=== PATIENT | male | born 1945 | race Caucasian/White ===

== ENCOUNTER 2016-12-18 11:05 | Outpatient (CLI) | payer MEDICARE ==
--- NOTE | 2016-12-18 14:10 | ULT ---
LEFT LOWER EXTREMITY VENOUS ULTRASOUND 12/18/2016 Ultrasonography of the deep veins of the left lower extremity was performed from groin to ankle. Al l deep veins were freely compressible. No echogenic clot was seen. There was normal Doppler respon se to augmentation maneuvers. IMPRESSION: No evidence of DVT. POS: MONE
--- NOTE | 2016-12-18 14:41 | ULT ---
LEFT LOWER EXTREMITY ARTERIAL ULTRASOUND: DATE: 12/18/16. FINDINGS: Color duplex Doppler ultrasonography of the arteries of the left lower extremity was performed. The patient presents with leg pain. Only the left side was done. For the most part, all the waveforms are biphasic. Overall, there is reduced flow throughout. Spec [facility] findings and measurements include: Left common femoral artery 54 cm/s. Left SFA 49-54 cm/s. Popliteal 52 cm/s. Proximal posterior tibial 33 cm/s Dorsalis pedis 50 cm/s. The uniformity of readings suggests no high-grade stenoses within the extremity itself; however, a f low of 54 cm/s in the common femoral artery is low, as are the other values inferior to it. Somewhe re close to 70 would be more typical in the distal SFA and popliteal area. All this implies the pos sibility of a higher-grade stenosis upstream in the iliac arteries. While I wish I would have had c omparison values of the right leg, these are consistently low enough to at least raise the question. Further studies, such as an CTA aortogram and runoff, particularly to investigate the iliac arteries , could prove fruitful. IMPRESSION: No high-grade stenoses indicated within the left lower extremity itself, but flows were reduced even as high as the common femoral artery suggesting the possibility of higher-grade iliac lesions above . See discussion above. POS: MONE
== END 2016-12-18 11:06 | disposition home or self-care (01) ==
LOC: BURULT 11:05
PROVIDERS: ATTEND Family Medicine
DX: M79.605 Pain in left leg (principal)
CPT/HCPCS: 93923

== ENCOUNTER 2017-06-23 09:43 | Outpatient (CLI) | payer MEDICARE | END 2017-06-23 09:44 | disposition home or self-care (01) | LOC: HPCALD 09:43 | PROVIDERS: ATTEND Family Medicine | DX: E29.1 Testicular hypofunction (principal) | CPT/HCPCS: 36415; 84403; G0103 ==

== ENCOUNTER 2018-01-26 15:46 | Emergency (ER) | payer MEDICARE ==
[2018-01-26] MEDS ORDERED: Lorazepam 2 MG/ML VIAL ONE (15:55)
[2018-01-26 16:09] LABS: #Basophils 0.1 thou/uL (0.0-0.2); #Eosinphils 0.1 thou/uL (0.0-0.7); #Lymphocytes 1.3 thou/uL (1.20-3.40); #Monocytes 0.5 thou/uL (0.11-0.59); #Neutrophils 6.2 thou/uL (1.40-6.50); %Basophils 0.9 % (0.0-1.0); %Eosinophils 1.3 % (0.0-10.0); %Lymphocytes 15.9 % (21.0-51.0); %Monocytes 6.3 % (0.0-10.0); %Neutrophils 75.7 % (42.0-75.0); Hemoglobin 18.8 g/dL (14.0-18.0); Mean Corpuscular HGB CONC 36.2 g/dL (32.0-36.0); Mean Corpuscular Hemoglobin 32.7 pg (27.0-31.0); Mean Corpuscular Volume 90.4 fl (80.0-94.0); Mean Platelet Volume 12.2 fL (7.4-10.4); Platelet Count 194 thou/uL (130-400); RBC Distribution Width 13.9 % (11.5-14.5); Red Blood Cell (RBC) Count 5.76 mill/uL (4.70-6.10); White Blood Cell (WBC) Count 8.2 thou/uL (4.8-10.8)
[2018-01-26 16:11] LABS: INR-International Normal Ratio 2.4; PTT 43.9 SEC (22.9-36.1)
[2018-01-26 16:20] LABS: ALT (SGPT) 27 U/L (8-55); AST (SGOT) 21 U/L (5-34); Albumin 4.3 g/dL (3.4-4.8); Alkaline Phosphatase 78 U/L (40-150); Anion Gap 17 mmol/L (10-20); BUN (Urea Nitrogen) 31 mg/dL (8.4-25.7); Calc. Creatinine Clearance 0 mL/min (70-130); Calcium 9.8 mg/dL (7.8-10.44); Carbon Dioxide 21 mmol/L (23-31); Chloride 103 mmol/L (98-107); Estimated GFR-MDRD 35; Globulin 3.1 g/dL (2.4-3.5); Glucose 331 mg/dL (83-110); Lipase 24 U/L (8-78); Potassium 4.3 mmol/L (3.5-5.1); Protein, Total 7.4 g/dL (5.8-8.1); Sodium 137 mmol/L (136-145)
[2018-01-26 16:21] LABS: Troponin I 0.058 ng/mL (< 0.028)
[2018-01-26 16:31] LABS: Large Platelets SLIGHT
[2018-01-26 16:32] LABS: Manual Diff?? NO
[2018-01-26 16:37] LABS: CKMB 7.4 ng/mL (0-6.6)
[2018-01-26 16:38] LABS: Critical Call CKMBM 0
[2018-01-26 16:44] LABS: Critical Call w/ Read Back NOT CALLED
[2018-01-26 16:50] LABS: MDiff Complete? YES; Polychromasia SLIGHT = 2-3 cells (100X) (0-2/hpf)
--- NOTE | 2018-01-26 17:43 | RAD ---
PORTABLE CHEST 01/26/18 Comparison is made with a 04/24/16 study. This portable film at 1614 shows increased density in the right base, though it is a somewhat expirat ory film, so difficult to assess well. There was a small amount of density here in 2016 but this seem s a little more confluent. I cannot rule out a consolidation of lung in this location. CT would be us eful at showing it better. Some lingular scarring is suggested. There is no vascular congestion. The heart is probably normal in size given the depth of inspiration in a portable film. IMPRESSION: Some increased density in the right lung base of uncertain etiology. See CT report to follow. POS: HOME
--- NOTE | 2018-01-26 17:47 | CT ---
CT OF THE THORAX WITHOUT CONTRAST 01/26/18 Exam was done without contrast due to a very low GFR of 35. Patient presents with some chest pain. Ax ial slices were acquired, then coronal and sagittal reconstructions were done. The exam was also done to evaluate an abnormal density in the right lower chest on the chest film done earlier today. 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 Thus lorena er protruding into that area causes the density. There are a few streaks in the lung adjacent to that that is probably some compressive atelectasis. No major consolidation, effusion, or other acute acosta ge was seen. There is a little dependent atelectasis in the lower lobes posteriorly. Prominent fat pa d is seen around the lingular area along with a little adjacent scarring. No pulmonary masses or conc al for detected. The mediastinum showed no mass or significant adenopathy. There was some calcificat ion in the LAD. There is no pericardial fluid. Scans into the upper abdomen showed normal adrenal glands. There is a 2.9 cm low density area in the left lobe of the liver that is probably a cyst or hemangioma. Other studies would be needed for confi rmation. Extensive degenerative changes are seen in the spine. IMPRESSION: 1. 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 2. Calcification in the LAD. 3. 2.9 cm cystic area in the left lobe of the liver. Cyst versus hemangioma most likely. See mally ramirez. POS: HOME
[2018-01-26 19:23] LABS: Troponin I 1.306 ng/mL (< 0.028)
== END 2018-01-26 21:11 ==
LOC: BURERS 15:46
DX: I21.4 Non-ST elevation (NSTEMI) myocardial infarction (principal); E11.9 Type 2 diabetes mellitus without complications; K21.9 Gastro-esophageal reflux disease without esophagitis; E78.5 Hyperlipidemia, unspecified; I10 Essential (primary) hypertension; E66.9 Obesity, unspecified; N40.0 Benign prostatic hyperplasia without lower urinary tract symptoms; F41.9 Anxiety disorder, unspecified; Z86.718 Personal history of other venous thrombosis and embolism; Z87.442 Personal history of urinary calculi; Z87.891 Personal history of nicotine dependence; Z79.4 Long term (current) use of insulin; Z79.899 Other long term (current) drug therapy
CPT/HCPCS: 36415; 71045; 71250; 80053; 82553; 83690; 83880; 84484; 85025; 85610; 85730; 93005; 96361; 96374; J2060

== ENCOUNTER 2022-03-11 09:02 | Inpatient (IN) | payer MEDICARE ==
[2022-03-11 10:22] LABS: #Basophils 0.1 thou/uL (0.0-0.2); #Lymphocytes 1.3 thou/uL (1.20-3.40); #Monocytes 0.9 thou/uL (0.11-0.59); #Neutrophils 7.3 thou/uL (1.40-6.50); %Basophils 0.7 % (0.0-1.0); %Eosinophils 0.5 % (0.0-10.0); %Lymphocytes 13.7 % (21.0-51.0); %Monocytes 9.1 % (0.0-10.0); %Neutrophils 76.1 % (42.0-75.0); Hemoglobin 12.4 g/dL (14.0-18.0); Mean Corpuscular HGB CONC 33.7 g/dL (32.0-36.0); Mean Corpuscular Hemoglobin 29.4 pg (27.0-31.0); Mean Corpuscular Volume 87.4 fL (78.0-98.0); Mean Platelet Volume 11.2 fL (7.4-10.4); Platelet Count 251 thou/uL (130-400); Red Blood Cell (RBC) Count 4.22 mill/uL (4.70-6.10); White Blood Cell (WBC) Count 9.6 thou/uL (4.8-10.8)
[2022-03-11 10:34] LABS: Base Excess-Venous 0.3 mmol/L (-2.0 to 3.0); Bicarbonate (HCO3v) 25.9 mmol/L (22.0-28.0); CO2 Tension (PvCO2) 44.8 mmHg (42.0-51.0); Calcium, Ionized 1.17 mmol/L (1.15-1.33); Chloride 105 mmol/L (98-107); Potassium 4.5 mmol/L (3.5-5.1); Sodium 142 mmol/L (138-145); T. Carbon Dioxide 27.3 mmol/L (22.0-28.0); vO2 Saturation-calc 57.4 % (60.0-85.0)
[2022-03-11 10:47] LABS: ALT (SGPT) 44 U/L (8-55); AST (SGOT) 65 U/L (5-34); Albumin 3.3 g/dL (3.4-4.8); Alkaline Phosphatase 65 U/L (40-110); Anion Gap 16 mmol/L (10-20); BUN (Urea Nitrogen) 34 mg/dL (8.4-25.7); Bilirubin, Total 0.5 mg/dL (0.2-1.2); Calc. Creatinine Clearance 0 mL/min (70-130); Calcium 9.1 mg/dL (7.8-10.44); Carbon Dioxide 25 mmol/L (23-31); Chloride 106 mmol/L (98-107); Globulin 3.6 g/dL (2.4-3.5); Potassium 4.5 mmol/L (3.5-5.1); Protein, Total 6.9 g/dL (5.8-8.1); Sodium 142 mmol/L (136-145)
[2022-03-11 10:49] LABS: Bilirubin Negative (Negative); Blood, Urine Large (Negative); Clarity Clear (Clear); Glucose, Urine (Dipstick) Negative (Negative); Ketone, Urine Negative (Negative); Leukocyte Negative (Negative); Nitrite Negative (Negative); Protein, Urine (Dipstick) > or equal to 300 mg/dL (Neg-Trace); pH, Urine 5.5 (5.0-9.0)
[2022-03-11 10:50] LABS: Glucose 57 mg/dL (83-110)
[2022-03-11 10:56] LABS: Bacteria/HPF Rare-Few HPF (None Seen); RBC/HPF 21-50 HPF (0-3); Squamous Epithelial None Seen HPF (0-3); WBC/HPF 0-3 HPF (0-3)
[2022-03-11] MEDS ORDERED: cefTRIAXone\\ROCEPHIN 2 GM VIAL ONE (12:21)
[2022-03-11] MEDS ORDERED: Azithromycin 500 MG VIAL ONE (12:21)
[2022-03-11 14:38] LABS: SARS-CoV-2 NAA Rapid Test Not Detected (NotDetected)
[2022-03-11] MEDS ORDERED: Ondansetron ODT 4 MG TAB PO PRN (15:29)
[2022-03-11] MEDS ORDERED: Dextrose 50% Abboject 50 ML SYRINGE SLOW IVP PRN (15:29)
[2022-03-11] MEDS ORDERED: Dextrose 5% in Water 1,000 ML IV PRN (15:29)
[2022-03-11] MEDS ORDERED: Polyethylene Glycol 3350 17 GM Packet PO PRN (15:29)
[2022-03-11] MEDS ORDERED: LAN TOP PRN (15:45)
[2022-03-11] MEDS ORDERED: [UNRECOGNIZED DRUG - OTHER] TOP PRN (15:45)
[2022-03-11] MEDS ORDERED: SOD CHLORIDE TOP PRN (15:45)
[2022-03-11 15:57] LABS: INR-International Normal Ratio 2.9; Prothrombin Time 30.6 sec (12.0-14.7)
[2022-03-11] MEDS: HumaLOG 300 UNITS/3 ML VIAL SC PRN (16:58)
[2022-03-11] MEDS: Warfarin Sodium 5 MG TAB PO SCH (17:01)
[2022-03-11 17:05] LABS: Hemoglobin A1c 8.6 % (4.0-6.0)
[2022-03-11] MEDS ORDERED: Lantus 1000 UNITS/10 ML VIAL SC SCH (21:00)
[2022-03-11] MEDS: Terazosin HCl 1 MG CAP PO SCH (21:20)
[2022-03-11] MEDS: hydrALAZINE 25 MG TAB PO SCH (21:21)
[2022-03-11] MEDS: Atorvastatin Calcium 40 MG TAB PO SCH (21:21)
[2022-03-11] MEDS: DOXYLAMINE 25 MG PO SCH (21:22)
[2022-03-12 05:18] LABS: INR-International Normal Ratio 2.8; Prothrombin Time 30.1 sec (12.0-14.7)
[2022-03-12 06:25] VITALS: BMI 37.1
[2022-03-12] MEDS: Nystatin Powder 15 GM BOT TOP SCH ×2 (08:46→21:00)
[2022-03-12] MEDS: HumaLOG 300 UNITS/3 ML VIAL SC PRN ×3 (09:00→17:17)
[2022-03-12] MEDS: hydrALAZINE 25 MG TAB PO SCH ×3 (09:02→20:34)
[2022-03-12] MEDS: Fish Oil 1,000 MG CAP PO SCH (09:02)
[2022-03-12] MEDS: Furosemide 20 MG TAB PO SCH (09:03)
[2022-03-12] MEDS: Allopurinol 100 MG TAB PO SCH (09:03)
[2022-03-12] MEDS: Aspirin Chewable 81 MG TAB PO SCH (09:03)
[2022-03-12] MEDS: Fenofibrate 48 MG TAB PO SCH (09:03)
[2022-03-12] MEDS: Cyanocobalamin (Vitamin B-12) 1,000 MCG TAB PO SCH (09:05)
[2022-03-12] MEDS: Cholecalciferol 1,000 UNITS (25 MCG) TAB PO SCH (09:05)
[2022-03-12] MEDS: Fluticasone Propionate Nasal Spray 16 gm Bottle NASAL SCH (09:06)
[2022-03-12] MEDS: POTASSIUM CITRATE 10 MEQ PO SCH ×2 (09:07→13:49)
[2022-03-12] MEDS ORDERED: Lantus 1000 UNITS/10 ML VIAL SC SCH ×3 (11:30→21:00)
[2022-03-12] MEDS: cefTRIAXone\\ROCEPHIN 1 GM in Sodium Chloride 0.9% 100 ML IVPB SCH (13:50)
[2022-03-12] MEDS: Azithromycin 500 MG in Sodium Chloride 0.9% 250 ML 250 ML IVPB SCH (14:25)
[2022-03-12] MEDS: Warfarin Sodium 5 MG TAB PO SCH (17:16)
[2022-03-12] MEDS: Atorvastatin Calcium 40 MG TAB PO SCH (20:33)
[2022-03-12] MEDS: DOXYLAMINE 25 MG PO SCH (20:38)
[2022-03-12] MEDS: Terazosin HCl 1 MG CAP PO SCH (20:39)
[2022-03-13 07:13] LABS: Prothrombin Time 31.6 sec (12.0-14.7)
[2022-03-13] MEDS ORDERED: Lantus 1000 UNITS/10 ML VIAL SC SCH (09:00)
[2022-03-13] MEDS: Allopurinol 100 MG TAB PO SCH (09:13)
[2022-03-13] MEDS: Furosemide 20 MG TAB PO SCH (09:13)
[2022-03-13] MEDS: Cyanocobalamin (Vitamin B-12) 1,000 MCG TAB PO SCH (09:13)
[2022-03-13] MEDS: Aspirin Chewable 81 MG TAB PO SCH (09:14)
[2022-03-13] MEDS: Fenofibrate 48 MG TAB PO SCH (09:14)
[2022-03-13] MEDS: Fish Oil 1,000 MG CAP PO SCH (09:14)
[2022-03-13] MEDS: Cholecalciferol 1,000 UNITS (25 MCG) TAB PO SCH (09:14)
[2022-03-13] MEDS: hydrALAZINE 25 MG TAB PO SCH (09:15)
[2022-03-13] MEDS: Nystatin Powder 15 GM BOT TOP SCH (09:16)
[2022-03-13] MEDS: Fluticasone Propionate Nasal Spray 16 gm Bottle NASAL SCH (09:26)
[2022-03-13] MEDS: POTASSIUM CITRATE 10 MEQ PO SCH (09:30)
[2022-03-13 12:50] VITALS: BP 135/69; TEMP 98.9
[2022-03-13] MEDS: cefTRIAXone\\ROCEPHIN 1 GM in Sodium Chloride 0.9% 100 ML IVPB SCH (13:05)
[2022-03-13] MEDS: Azithromycin 500 MG in Sodium Chloride 0.9% 250 ML 250 ML IVPB SCH (13:39)
== END 2022-03-13 13:57 | disposition swing bed (61) | DRG 947 ==
LOC: BURERS 09:02 → BURMED 13:18
PROVIDERS: ADMIT Family Medicine; ATTEND Family Medicine
DX: R53.81 Other malaise (principal); J18.9 Pneumonia, unspecified organism; E11.649 Type 2 diabetes mellitus with hypoglycemia without coma; G47.33 Obstructive sleep apnea (adult) (pediatric); K21.9 Gastro-esophageal reflux disease without esophagitis; N40.0 Benign prostatic hyperplasia without lower urinary tract symptoms; E78.5 Hyperlipidemia, unspecified; Z20.822 Contact with and (suspected) exposure to COVID-19; F41.9 Anxiety disorder, unspecified; I25.10 Atherosclerotic heart disease of native coronary artery without angina pectoris; I10 Essential (primary) hypertension; E66.9 Obesity, unspecified; Z86.718 Personal history of other venous thrombosis and embolism; Z86.73 Personal history of transient ischemic attack (TIA), and cerebral infarction without residual deficits; Z90.49 Acquired absence of other specified parts of digestive tract; Z87.891 Personal history of nicotine dependence; Z88.5 Allergy status to narcotic agent; Z79.01 Long term (current) use of anticoagulants; Z68.37 Body mass index [BMI] 37.0-37.9, adult
CPT/HCPCS: 36415; 36416; 70450; 71045; 71250; 80053; 81003; 81015; 82330; 82803; 83036; 83880; 84484; 85014; 85025; 85610; 87040; 87149; 93005; J0456; J0696; J1815; J3490; J7050; U0002

== ENCOUNTER 2022-03-13 13:57 | Inpatient (IN) | payer MEDICARE ==
[2022-03-13] MEDS ORDERED: HumaLOG 300 UNITS/3 ML VIAL SC PRN (15:19)
[2022-03-13] MEDS ORDERED: WATER IV PRN (15:19)
[2022-03-13] MEDS ORDERED: Ondansetron ODT 4 MG TAB PO PRN (15:19)
[2022-03-13] MEDS ORDERED: Dextrose 50% Abboject 50 ML SYRINGE SLOW IVP PRN (15:19)
[2022-03-13] MEDS ORDERED: Polyethylene Glycol 3350 17 GM Packet PO PRN (15:19)
[2022-03-13] MEDS ORDERED: DEXTROSE 5% IV PRN (15:19)
[2022-03-13] MEDS ORDERED: Triamcinolone 0.1% Cream 15 GM TUBE TOP PRN (15:36)
[2022-03-13] MEDS ORDERED: LUBRIDERM DT PRN (15:41)
[2022-03-13] MEDS ORDERED: Dextrose 5% in Water 1,000 ML IV PRN (15:45)
[2022-03-13 16:07] LABS: INR-International Normal Ratio 2.8; Prothrombin Time 30.1 sec (12.0-14.7)
[2022-03-13] MEDS: Warfarin Sodium 5 MG TAB PO SCH (17:49)
[2022-03-13] MEDS: HumaLOG 300 UNITS/3 ML VIAL SC PRN (18:22)
[2022-03-13] MEDS ORDERED: Lantus 1000 UNITS/10 ML VIAL SC SCH (21:00)
[2022-03-13] MEDS: Terazosin HCl 1 MG CAP PO SCH (21:19)
[2022-03-13] MEDS: hydrALAZINE 25 MG TAB PO SCH (21:20)
[2022-03-13] MEDS: Atorvastatin Calcium 40 MG TAB PO SCH (21:20)
[2022-03-13] MEDS: Nystatin Powder 15 GM BOT TOP SCH (21:20)
[2022-03-13] MEDS: UNISOM 25 MG PO SCH (21:21)
[2022-03-14] MEDS: Nystatin Powder 15 GM BOT TOP SCH ×2 (09:35→21:22)
[2022-03-14] MEDS: Aspirin Chewable 81 MG TAB PO SCH (09:35)
[2022-03-14] MEDS: Allopurinol 100 MG TAB PO SCH (09:35)
[2022-03-14] MEDS: Furosemide 20 MG TAB PO SCH (09:36)
[2022-03-14] MEDS: Fenofibrate 48 MG TAB PO SCH (09:36)
[2022-03-14] MEDS: Cholecalciferol 1,000 UNITS (25 MCG) TAB PO SCH (09:36)
[2022-03-14] MEDS: Cyanocobalamin (Vitamin B-12) 1,000 MCG TAB PO SCH (09:37)
[2022-03-14] MEDS: Fish Oil 1,000 MG CAP PO SCH (09:37)
[2022-03-14] MEDS: hydrALAZINE 25 MG TAB PO SCH ×3 (09:38→21:22)
[2022-03-14] MEDS: Fluticasone Propionate Nasal Spray 16 gm Bottle NASAL SCH (09:40)
[2022-03-14] MEDS: Lantus 1000 UNITS/10 ML VIAL SC SCH ×2 (09:41→21:34)
[2022-03-14] MEDS: POTASSIUM CITRATE 10 MEQ PO SCH (09:50)
[2022-03-14] MEDS: cefTRIAXone\\ROCEPHIN 1 GM in Sodium Chloride 0.9% 100 ML IVPB SCH (12:55)
[2022-03-14] MEDS ORDERED: cefTRIAXone\\ROCEPHIN 1 GM VIAL IVPB SCH (13:00)
[2022-03-14] MEDS: Azithromycin 500 MG in Sodium Chloride 0.9% 250 ML 250 ML IVPB SCH (13:59)
[2022-03-14] MEDS ORDERED: Azithromycin 500 MG VIAL IVPB SCH (14:00)
[2022-03-14] MEDS: Warfarin Sodium 5 MG TAB PO SCH (17:30)
[2022-03-14] MEDS: HumaLOG 300 UNITS/3 ML VIAL SC PRN (17:31)
[2022-03-14] MEDS: Terazosin HCl 1 MG CAP PO SCH (21:22)
[2022-03-14] MEDS: Atorvastatin Calcium 40 MG TAB PO SCH (21:22)
[2022-03-14] MEDS: UNISOM 25 MG PO SCH (21:23)
[2022-03-15] MEDS: Lantus 1000 UNITS/10 ML VIAL SC SCH ×3 (09:36→22:36)
[2022-03-15] MEDS: HumaLOG 300 UNITS/3 ML VIAL SC PRN ×3 (09:41→17:14)
[2022-03-15] MEDS: Fish Oil 1,000 MG CAP PO SCH (09:44)
[2022-03-15] MEDS: Aspirin Chewable 81 MG TAB PO SCH (09:44)
[2022-03-15] MEDS: Fenofibrate 48 MG TAB PO SCH (09:45)
[2022-03-15] MEDS: Cholecalciferol 1,000 UNITS (25 MCG) TAB PO SCH (09:45)
[2022-03-15] MEDS: Cyanocobalamin (Vitamin B-12) 1,000 MCG TAB PO SCH (09:49)
[2022-03-15] MEDS: POTASSIUM CITRATE 10 MEQ PO SCH (09:51)
[2022-03-15] MEDS: Allopurinol 100 MG TAB PO SCH (09:52)
[2022-03-15] MEDS: Furosemide 20 MG TAB PO SCH (09:52)
[2022-03-15] MEDS: hydrALAZINE 25 MG TAB PO SCH ×3 (09:53→20:50)
[2022-03-15] MEDS: Fluticasone Propionate Nasal Spray 16 gm Bottle NASAL SCH (10:27)
[2022-03-15] MEDS: cefTRIAXone\\ROCEPHIN 1 GM in Sodium Chloride 0.9% 100 ML IVPB SCH (12:51)
[2022-03-15] MEDS: Nystatin Powder 15 GM BOT TOP SCH ×2 (12:51→21:15)
[2022-03-15] MEDS: Azithromycin 500 MG in Sodium Chloride 0.9% 250 ML 250 ML IVPB SCH (13:57)
[2022-03-15 15:57] LABS: Anion Gap 16 mmol/L (10-20); BUN (Urea Nitrogen) 42 mg/dL (8.4-25.7); Calc. Creatinine Clearance 48 mL/min (70-130); Calcium 8.6 mg/dL (7.8-10.44); Carbon Dioxide 24 mmol/L (23-31); Chloride 104 mmol/L (98-107); Glucose 391 mg/dL (83-110); Potassium 4.8 mmol/L (3.5-5.1); Sodium 139 mmol/L (136-145)
[2022-03-15] MEDS: Warfarin Sodium 5 MG TAB PO SCH (16:57)
[2022-03-15] MEDS: Atorvastatin Calcium 40 MG TAB PO SCH (20:50)
[2022-03-15] MEDS: Terazosin HCl 1 MG CAP PO SCH (20:50)
[2022-03-15] MEDS: UNISOM 25 MG PO SCH (21:16)
[2022-03-16 07:31] LABS: Prothrombin Time 32.1 sec (12.0-14.7)
[2022-03-16] MEDS: Lantus 1000 UNITS/10 ML VIAL SC SCH ×2 (09:12→21:11)
[2022-03-16] MEDS: Fluticasone Propionate Nasal Spray 16 gm Bottle NASAL SCH (09:13)
[2022-03-16] MEDS: Nystatin Powder 15 GM BOT TOP SCH ×2 (09:14→21:12)
[2022-03-16] MEDS: Aspirin Chewable 81 MG TAB PO SCH (09:15)
[2022-03-16] MEDS: POTASSIUM CITRATE 10 MEQ PO SCH (09:15)
[2022-03-16] MEDS: Tamsulosin HCl 0.4 MG CAP PO SCH (09:16)
[2022-03-16] MEDS: Fenofibrate 48 MG TAB PO SCH (09:16)
[2022-03-16] MEDS: Cyanocobalamin (Vitamin B-12) 1,000 MCG TAB PO SCH (09:16)
[2022-03-16] MEDS: Cholecalciferol 1,000 UNITS (25 MCG) TAB PO SCH (09:16)
[2022-03-16] MEDS: Fish Oil 1,000 MG CAP PO SCH (09:16)
[2022-03-16] MEDS: Furosemide 20 MG TAB PO SCH (09:16)
[2022-03-16] MEDS: Allopurinol 100 MG TAB PO SCH (09:17)
[2022-03-16] MEDS: hydrALAZINE 25 MG TAB PO SCH ×3 (09:17→21:04)
[2022-03-16] MEDS: HumaLOG 300 UNITS/3 ML VIAL SC PRN ×2 (12:44→17:03)
[2022-03-16] MEDS: cefTRIAXone\\ROCEPHIN 1 GM in Sodium Chloride 0.9% 100 ML IVPB SCH (12:46)
[2022-03-16 14:16] VITALS: BMI 35.2
[2022-03-16] MEDS: Warfarin Sodium 5 MG TAB PO SCH (17:02)
[2022-03-16] MEDS: Atorvastatin Calcium 40 MG TAB PO SCH (21:04)
[2022-03-16] MEDS: Terazosin HCl 1 MG CAP PO SCH (21:04)
[2022-03-16] MEDS: UNISOM 25 MG PO SCH (21:13)
[2022-03-17] MEDS: hydrALAZINE 25 MG TAB PO SCH ×3 (09:11→21:23)
[2022-03-17] MEDS: Cyanocobalamin (Vitamin B-12) 1,000 MCG TAB PO SCH (09:11)
[2022-03-17] MEDS: Allopurinol 100 MG TAB PO SCH (09:13)
[2022-03-17] MEDS: Furosemide 20 MG TAB PO SCH (09:13)
[2022-03-17] MEDS: Cholecalciferol 1,000 UNITS (25 MCG) TAB PO SCH (09:15)
[2022-03-17] MEDS: Aspirin Chewable 81 MG TAB PO SCH (09:16)
[2022-03-17] MEDS: Tamsulosin HCl 0.4 MG CAP PO SCH (09:16)
[2022-03-17] MEDS: Fish Oil 1,000 MG CAP PO SCH (09:16)
[2022-03-17] MEDS: Fluticasone Propionate Nasal Spray 16 gm Bottle NASAL SCH (09:16)
[2022-03-17] MEDS: Fenofibrate 48 MG TAB PO SCH (09:16)
[2022-03-17] MEDS: Nystatin Powder 15 GM BOT TOP SCH ×2 (09:17→21:46)
[2022-03-17] MEDS: POTASSIUM CITRATE 10 MEQ PO SCH (09:18)
[2022-03-17] MEDS: Lantus 1000 UNITS/10 ML VIAL SC SCH ×2 (09:23→21:47)
[2022-03-17] MEDS: cefTRIAXone\\ROCEPHIN 1 GM in Sodium Chloride 0.9% 100 ML IVPB SCH (12:31)
[2022-03-17] MEDS: HumaLOG 300 UNITS/3 ML VIAL SC PRN ×2 (12:32→18:09)
[2022-03-17] MEDS: Warfarin Sodium 5 MG TAB PO SCH (16:39)
[2022-03-17] MEDS ORDERED: Warfarin Sodium 2 MG TAB PO SCH (17:00)
[2022-03-17] MEDS ORDERED: WARFARIN IVPB SCH (17:00)
[2022-03-17] MEDS: Terazosin HCl 1 MG CAP PO SCH (21:23)
[2022-03-17] MEDS: Atorvastatin Calcium 40 MG TAB PO SCH (21:24)
[2022-03-18 06:07] VITALS: BP 127/74; TEMP 98.1
[2022-03-18] MEDS ORDERED: Potassium Chloride 10 MEQ TAB PO SCH (08:00)
[2022-03-18] MEDS: Allopurinol 100 MG TAB PO SCH (08:57)
[2022-03-18] MEDS: Cholecalciferol 1,000 UNITS (25 MCG) TAB PO SCH (08:57)
[2022-03-18] MEDS: Cyanocobalamin (Vitamin B-12) 1,000 MCG TAB PO SCH (08:58)
[2022-03-18] MEDS: Aspirin Chewable 81 MG TAB PO SCH (08:59)
[2022-03-18] MEDS: Fenofibrate 48 MG TAB PO SCH (08:59)
[2022-03-18] MEDS: Furosemide 20 MG TAB PO SCH (08:59)
[2022-03-18] MEDS: Fish Oil 1,000 MG CAP PO SCH (08:59)
[2022-03-18] MEDS: Tamsulosin HCl 0.4 MG CAP PO SCH (08:59)
[2022-03-18] MEDS: hydrALAZINE 25 MG TAB PO SCH (08:59)
[2022-03-18] MEDS: Nystatin Powder 15 GM BOT TOP SCH (09:00)
[2022-03-18] MEDS: Lantus 1000 UNITS/10 ML VIAL SC SCH (09:00)
[2022-03-18] MEDS: Fluticasone Propionate Nasal Spray 16 gm Bottle NASAL SCH (09:00)
[2022-03-18] MEDS ORDERED: Warfarin Sodium 2 MG TAB PO SCH (17:00)
== END 2022-03-18 09:25 | disposition home or self-care (01) | DRG 195 ==
LOC: BURMED 13:57
PROVIDERS: ADMIT Family Medicine; ATTEND Family Medicine
DX: J18.9 Pneumonia, unspecified organism (principal); R53.81 Other malaise; E11.649 Type 2 diabetes mellitus with hypoglycemia without coma; I25.10 Atherosclerotic heart disease of native coronary artery without angina pectoris; I10 Essential (primary) hypertension; G47.33 Obstructive sleep apnea (adult) (pediatric); N40.0 Benign prostatic hyperplasia without lower urinary tract symptoms; E78.5 Hyperlipidemia, unspecified; Z86.718 Personal history of other venous thrombosis and embolism; Z79.01 Long term (current) use of anticoagulants; Z86.73 Personal history of transient ischemic attack (TIA), and cerebral infarction without residual deficits
CPT/HCPCS: 36415; 36416; 80048; 85610; J0456; J0696; J1815; J3490; J7050

== ENCOUNTER 2022-04-02 09:54 | Outpatient (CLI) | payer MEDICARE | END 2022-04-02 09:55 | disposition home or self-care (01) | LOC: BURCT 09:54 | PROVIDERS: ATTEND Family Medicine | DX: J16.8 Pneumonia due to other specified infectious organisms (principal); J18.1 Lobar pneumonia, unspecified organism | CPT/HCPCS: 71250 ==

== ENCOUNTER 2022-08-05 08:22 | Emergency (ER) | payer MEDICARE, OTHER | END 2022-08-05 10:26 | disposition home or self-care (01) | LOC: BURERS 08:22 | DX: S06.9X9A Unspecified intracranial injury with loss of consciousness of unspecified duration, initial encounter (principal); E11.649 Type 2 diabetes mellitus with hypoglycemia without coma; K21.9 Gastro-esophageal reflux disease without esophagitis; I10 Essential (primary) hypertension; E78.5 Hyperlipidemia, unspecified; G47.33 Obstructive sleep apnea (adult) (pediatric); W22.8XXA Striking against or struck by other objects, initial encounter; Z86.73 Personal history of transient ischemic attack (TIA), and cerebral infarction without residual deficits; Z87.891 Personal history of nicotine dependence; Z86.718 Personal history of other venous thrombosis and embolism; Z79.01 Long term (current) use of anticoagulants; Z79.4 Long term (current) use of insulin; Z79.82 Long term (current) use of aspirin; Z79.899 Other long term (current) drug therapy | CPT/HCPCS: 36416; 70450; 72125 ==

== ENCOUNTER 2023-01-03 16:07 | Emergency (ER) | payer MEDICARE ==
[2023-01-03 16:36] LABS: #Basophils 0.1 thou/uL (0.0-0.2); #Eosinphils 0.3 thou/uL (0.0-0.7); #Lymphocytes 1.8 thou/uL (1.20-3.40); #Monocytes 0.6 thou/uL (0.11-0.59); #Neutrophils 6.1 thou/uL (1.40-6.50); %Basophils 0.8 % (0.0-1.0); %Eosinophils 2.9 % (0.0-10.0); %Lymphocytes 20.7 % (21.0-51.0); %Monocytes 6.9 % (0.0-10.0); %Neutrophils 68.8 % (42.0-75.0); Hemoglobin 9.6 g/dL (14.0-18.0); Mean Corpuscular HGB CONC 31.8 g/dL (32.0-36.0); Mean Corpuscular Hemoglobin 27.2 pg (27.0-31.0); Mean Corpuscular Volume 85.6 fl (78.0-98.0); Mean Platelet Volume 9.5 fL (7.4-10.4); Platelet Count 306 10x3/uL (130-400); RBC Distribution Width 15.4 % (11.5-14.5); Red Blood Cell (RBC) Count 3.54 mill/uL (4.70-6.10); White Blood Cell (WBC) Count 8.8 10x3/uL (4.8-10.8)
[2023-01-03] MEDS ORDERED: Acetaminophen 500 MG TAB ONE (16:53)
[2023-01-03 16:54] LABS: ALT (SGPT) 14 U/L (8-55); AST (SGOT) 12 U/L (5-34); Albumin 3.1 g/dL (3.4-4.8); Alkaline Phosphatase 67 U/L (40-110); Anion Gap 14 mmol/L (10-20); BUN (Urea Nitrogen) 49 mg/dL (8.4-25.7); Bilirubin, Total 0.3 mg/dL (0.2-1.2); Calc. Creatinine Clearance 0 mL/min (70-130); Calcium 8.4 mg/dL (7.8-10.44); Carbon Dioxide 21 mmol/L (23-31); Chloride 109 mmol/L (98-107); Estimated GFR 24; Globulin 3.3 g/dL (2.4-3.5); Glucose 244 mg/dL (83-110); Lipase 19 U/L (8-78); Magnesium 2.2 mg/dL (1.6-2.6); Potassium 4.3 mmol/L (3.5-5.1); Protein, Total 6.4 g/dL (5.8-8.1); Sodium 140 mmol/L (136-145)
[2023-01-03 17:14] LABS: CKMB 5.3 ng/mL (0-6.6)
[2023-01-03 18:00] LABS: INR-International Normal Ratio 2.5; Prothrombin Time 28.5 sec (12.0-14.7)
== END 2023-01-03 18:37 | disposition short-term general hospital (02) ==
LOC: BURERS 16:07
DX: I82.4Z2 Acute embolism and thrombosis of unspecified deep veins of left distal lower extremity (principal); I51.3 Intracardiac thrombosis, not elsewhere classified; R09.02 Hypoxemia; Z79.01 Long term (current) use of anticoagulants; Z79.899 Other long term (current) drug therapy; E11.9 Type 2 diabetes mellitus without complications; K21.9 Gastro-esophageal reflux disease without esophagitis; E78.5 Hyperlipidemia, unspecified; I10 Essential (primary) hypertension; Z86.73 Personal history of transient ischemic attack (TIA), and cerebral infarction without residual deficits; Z87.891 Personal history of nicotine dependence; Z79.82 Long term (current) use of aspirin; Z79.4 Long term (current) use of insulin
CPT/HCPCS: 80053; 82553; 83605; 83690; 83735; 83880; 84484; 85025; 85379; 85610; 93005

== ENCOUNTER 2023-07-22 13:02 | Observation (INO) | payer MEDICARE, OTHER ==
[2023-07-22 13:36] LABS: #Basophils 0.1 thou/uL (0.0-0.2); #Eosinphils 0.3 thou/uL (0.0-0.7); #Lymphocytes 1.8 thou/uL (1.20-3.40); #Neutrophils 7.3 thou/uL (1.40-6.50); %Basophils 0.5 % (0.0-1.0); %Eosinophils 2.8 % (0.0-10.0); %Lymphocytes 17.3 % (21.0-51.0); %Monocytes 9.8 % (0.0-10.0); %Neutrophils 69.7 % (42.0-75.0); Hematocrit 35.4 % (42.0-52.0); Hemoglobin 11.6 g/dL (14.0-18.0); Mean Corpuscular HGB CONC 32.7 g/dL (32.0-36.0); Mean Corpuscular Hemoglobin 28.4 pg (27.0-31.0); Mean Platelet Volume 10.4 fL (7.4-10.4); Platelet Count 245 10x3/uL (130-400); RBC Distribution Width 13.7 % (11.5-14.5); Red Blood Cell (RBC) Count 4.06 mill/uL (4.70-6.10); White Blood Cell (WBC) Count 10.4 10x3/uL (4.8-10.8)
[2023-07-22 13:36] LABS: Bilirubin Negative (Negative); Blood, Urine Negative (Negative); Clarity Clear (Clear); Glucose, Urine (Dipstick) 500 mg/dL (Negative); Ketone, Urine Negative (Negative); Leukocyte Negative (Negative); Nitrite Negative (Negative); Protein, Urine (Dipstick) 100 mg/dL (Neg-Trace); Urobilinogen 0.2 mg/dL (Less than 2)
[2023-07-22 13:42] LABS: Bacteria/HPF 1+ HPF (None Seen); CAUTI Indications for Culture Dysuria,urgency,freq; RBC/HPF 0-3 HPF (0-3); Squamous Epithelial None Seen HPF (0-3); Urine Culture Reflex No No; WBC/HPF 0-3 HPF (0-3)
[2023-07-22 13:50] LABS: ALT (SGPT) 21 U/L (8-55); AST (SGOT) 15 U/L (5-34); Albumin 3.1 g/dL (3.4-4.8); Alkaline Phosphatase 65 U/L (40-110); Anion Gap 14 mmol/L (10-20); BUN (Urea Nitrogen) 54 mg/dL (8.4-25.7); Bilirubin, Total 0.5 mg/dL (0.2-1.2); Calc. Creatinine Clearance 0 mL/min (70-130); Calcium 8.5 mg/dL (7.8-10.44); Carbon Dioxide 22 mmol/L (23-31); Chloride 112 mmol/L (98-107); Estimated GFR 28; Globulin 2.7 g/dL (2.4-3.5); Potassium 3.9 mmol/L (3.5-5.1); Protein, Total 5.8 g/dL (5.8-8.1); Sodium 144 mmol/L (136-145)
[2023-07-22 13:53] LABS: Glucose 53 mg/dL (83-110)
[2023-07-22] MEDS ORDERED: Glucagon 1 MG/ML KIT IM PRN (18:45)
[2023-07-22] MEDS ORDERED: HumaLOG 300 UNITS/3 ML VIAL SC PRN (18:45)
[2023-07-22] MEDS ORDERED: Dextrose 5% in Water 1,000 ML IV PRN (18:45)
[2023-07-22] MEDS ORDERED: Dextrose 50% Abboject 50 ML SYRINGE IVP PRN (18:45)
[2023-07-22] MEDS ORDERED: Atorvastatin Calcium 40 MG TAB PO SCH (21:00)
[2023-07-22] MEDS ORDERED: Donepezil HCl 10 MG TAB PO SCH (21:00)
[2023-07-22] MEDS ORDERED: Terazosin HCl 1 MG CAP PO SCH (21:00)
[2023-07-22] MEDS ORDERED: Non-Formulary Item 1 EACH (Insulin Aspart [Novolog] 100 UNIT/ML Vial) SC SCH (21:00)
[2023-07-22] MEDS: hydrALAZINE 25 MG TAB PO SCH (21:20)
[2023-07-22] MEDS: Lantus 1000 UNITS/10 ML VIAL SC SCH (21:21)
[2023-07-22] MEDS ORDERED: Permethrin 5% Cream 60 GM TUBE TOP SCH (23:00)
[2023-07-23 08:20] VITALS: BMI 35.5
[2023-07-23] MEDS ORDERED: POTASSIUM CITRATE 10 MEQ PO SCH (09:00)
[2023-07-23] MEDS ORDERED: CO Q-10 CAPSULE 100 MG PO SCH (09:00)
[2023-07-23] MEDS ORDERED: Cyanocobalamin (Vitamin B-12) 1,000 MCG TAB PO SCH (09:00)
[2023-07-23] MEDS ORDERED: Allopurinol 100 MG TAB PO SCH (09:00)
[2023-07-23] MEDS ORDERED: Lisinopril 20 MG TAB PO SCH (09:00)
[2023-07-23] MEDS ORDERED: Fenofibrate 48 MG TAB PO SCH (09:00)
[2023-07-23] MEDS ORDERED: Rivaroxaban 10 MG TAB PO SCH (09:00)
[2023-07-23] MEDS ORDERED: Cholecalciferol 1,000 UNITS (25 MCG) TAB PO SCH (09:00)
[2023-07-23] MEDS ORDERED: Fish Oil 1,000 MG CAP PO SCH (09:00)
[2023-07-23] MEDS ORDERED: Floranex 1 GM Packet PO SCH (09:00)
[2023-07-23] MEDS ORDERED: Fluticasone Propionate Nasal Spray 16 gm Bottle NASAL SCH (09:00)
[2023-07-23] MEDS ORDERED: Aspirin Chewable 81 MG TAB PO SCH (09:00)
[2023-07-23] MEDS ORDERED: Furosemide 40 MG TAB PO SCH (09:00)
[2023-07-23] MEDS: hydrALAZINE 25 MG TAB PO SCH (10:10)
[2023-07-23] MEDS: Lantus 1000 UNITS/10 ML VIAL SC SCH (10:15)
[2023-07-23 14:44] VITALS: BP 138/64; TEMP 97.6
[2023-07-24] MEDS ORDERED: Potassium Chloride 10 MEQ TAB PO SCH (08:00)
== END 2023-07-23 16:25 | disposition swing bed (61) ==
LOC: BURERS 13:02 → BURMED 14:52
PROVIDERS: ADMIT Family Medicine; ATTEND Family Medicine
DX: J96.01 Acute respiratory failure with hypoxia (principal); R53.1 Weakness; I13.0 Hypertensive heart and chronic kidney disease with heart failure and stage 1 through stage 4 chronic kidney disease, or unspecified chronic kidney disease; I50.32 Chronic diastolic (congestive) heart failure; N18.9 Chronic kidney disease, unspecified; I63.9 Cerebral infarction, unspecified; I48.0 Paroxysmal atrial fibrillation; E11.22 Type 2 diabetes mellitus with diabetic chronic kidney disease; R60.0 Localized edema; R01.1 Cardiac murmur, unspecified; E66.01 Morbid (severe) obesity due to excess calories; E86.0 Dehydration; E87.20 Acidosis, unspecified; E78.5 Hyperlipidemia, unspecified; N40.0 Benign prostatic hyperplasia without lower urinary tract symptoms; I21.4 Non-ST elevation (NSTEMI) myocardial infarction; D63.1 Anemia in chronic kidney disease; F03.90 Unspecified dementia, unspecified severity, without behavioral disturbance, psychotic disturbance, mood disturbance, and anxiety; H91.90 Unspecified hearing loss, unspecified ear; Z88.5 Allergy status to narcotic agent; Z79.82 Long term (current) use of aspirin; Z79.01 Long term (current) use of anticoagulants; Z95.5 Presence of coronary angioplasty implant and graft; Z90.89 Acquired absence of other organs; Z86.16 Personal history of COVID-19; Z79.899 Other long term (current) drug therapy
CPT/HCPCS: 36415; 36416; 80053; 81001; 85025; 97602; 99285; G0378; J1815

== ENCOUNTER 2023-07-23 16:38 | Inpatient (IN) | payer MEDICARE ==
[2023-07-23 17:39] VITALS: BMI 35.5
[2023-07-23] MEDS ORDERED: Ondansetron ODT 4 MG TAB SL PRN (17:45)
[2023-07-23] MEDS ORDERED: Calcium Carbonate 500 MG ChewTAB PO PRN (17:45)
[2023-07-23] MEDS ORDERED: Bisacodyl 10 MG SUPP PR PRN (17:45)
[2023-07-23] MEDS ORDERED: HumaLOG 300 UNITS/3 ML VIAL SC PRN (17:45)
[2023-07-23] MEDS ORDERED: HYDROcodone/Acetaminophen 5/325 mg Tablet PO PRN ×2 (17:45)
[2023-07-23] MEDS ORDERED: Acetaminophen 650 MG Suppository PR PRN (17:45)
[2023-07-23] MEDS ORDERED: Senokot S 8.6-50 MG TAB PO PRN (17:45)
[2023-07-23] MEDS ORDERED: Bisacodyl 5 MG TAB PO PRN (17:45)
[2023-07-23] MEDS ORDERED: Ondansetron PF 4 MG/2 ML Vial SLOW IVP PRN (17:45)
[2023-07-23] MEDS ORDERED: Zolpidem Tartrate 5 MG TAB PO PRN (17:45)
[2023-07-23] MEDS ORDERED: Loperamide HCl 2 MG CAP PO PRN ×2 (17:45)
[2023-07-23] MEDS: Atorvastatin Calcium 40 MG TAB PO SCH (21:09)
[2023-07-23] MEDS: Donepezil HCl 10 MG TAB PO SCH (21:10)
[2023-07-23] MEDS: Terazosin HCl 1 MG CAP PO SCH (21:10)
[2023-07-23] MEDS: hydrALAZINE 25 MG TAB PO SCH (21:10)
[2023-07-23] MEDS ORDERED: hydrALAZINE 25 MG TAB PO SCH (23:24)
[2023-07-23] MEDS ORDERED: Aspirin Chewable 81 MG TAB PO SCH (23:24)
[2023-07-23] MEDS ORDERED: Cyanocobalamin (Vitamin B-12) 1,000 MCG TAB PO SCH (23:24)
[2023-07-23] MEDS ORDERED: Dextrose 5% in Water 1,000 ML IV PRN (23:24)
[2023-07-23] MEDS ORDERED: Cholecalciferol 1,000 UNITS (25 MCG) TAB PO SCH (23:24)
[2023-07-23] MEDS ORDERED: Lisinopril 20 MG TAB PO SCH (23:24)
[2023-07-23] MEDS ORDERED: Fenofibrate 48 MG TAB PO SCH (23:24)
[2023-07-23] MEDS ORDERED: Furosemide 40 MG TAB PO SCH (23:24)
[2023-07-23] MEDS ORDERED: Glucagon 1 MG/ML KIT IM PRN (23:24)
[2023-07-23] MEDS ORDERED: Donepezil HCl 10 MG TAB PO SCH (23:24)
[2023-07-23] MEDS ORDERED: Floranex 1 GM Packet PO SCH (23:24)
[2023-07-23] MEDS ORDERED: Atorvastatin Calcium 40 MG TAB PO SCH (23:24)
[2023-07-23] MEDS ORDERED: Fish Oil 1,000 MG CAP PO SCH (23:24)
[2023-07-23] MEDS ORDERED: Allopurinol 100 MG TAB PO SCH (23:24)
[2023-07-23] MEDS ORDERED: Fluticasone Propionate Nasal Spray 16 gm Bottle NASAL SCH (23:24)
[2023-07-23] MEDS ORDERED: Rivaroxaban 10 MG TAB PO SCH (23:24)
[2023-07-23] MEDS ORDERED: Terazosin HCl 1 MG CAP PO SCH (23:24)
[2023-07-24] MEDS: Floranex 1 GM Packet PO SCH (08:33)
[2023-07-24] MEDS: Lisinopril 20 MG TAB PO SCH (08:34)
[2023-07-24] MEDS: Rivaroxaban 10 MG TAB PO SCH (08:35)
[2023-07-24] MEDS: Fish Oil 1,000 MG CAP PO SCH (08:36)
[2023-07-24] MEDS: Fenofibrate 48 MG TAB PO SCH (08:36)
[2023-07-24] MEDS: Potassium Chloride 10 MEQ TAB PO SCH (08:36)
[2023-07-24] MEDS: hydrALAZINE 25 MG TAB PO SCH ×2 (08:37→21:28)
[2023-07-24] MEDS: Furosemide 40 MG TAB PO SCH (08:37)
[2023-07-24] MEDS: Cholecalciferol 1,000 UNITS (25 MCG) TAB PO SCH (08:37)
[2023-07-24] MEDS: Aspirin Chewable 81 MG TAB PO SCH (08:38)
[2023-07-24] MEDS: CO Q-10 CAPSULE 100 MG PO SCH (08:39)
[2023-07-24] MEDS: Cyanocobalamin (Vitamin B-12) 1,000 MCG TAB PO SCH (08:39)
[2023-07-24] MEDS: Fluticasone Propionate Nasal Spray 16 gm Bottle NASAL SCH (08:40)
[2023-07-24] MEDS ORDERED: CO Q-10 CAPSULE 100 MG PO SCH (09:00)
[2023-07-24] MEDS ORDERED: Furosemide 40 MG TAB PO SCH (09:00)
[2023-07-24] MEDS: HumaLOG 300 UNITS/3 ML VIAL SC PRN ×3 (09:04→21:31)
[2023-07-24] MEDS: Terazosin HCl 1 MG CAP PO SCH (21:27)
[2023-07-24] MEDS: Atorvastatin Calcium 40 MG TAB PO SCH (21:27)
[2023-07-24] MEDS: Donepezil HCl 10 MG TAB PO SCH (21:28)
[2023-07-25 05:07] LABS: Hematocrit 36.4 % (42.0-52.0); Hemoglobin 11.6 g/dL (14.0-18.0); Platelet Count 207 10x3/uL (130-400)
[2023-07-25] MEDS: Floranex 1 GM Packet PO SCH (08:15)
[2023-07-25] MEDS: Rivaroxaban 10 MG TAB PO SCH (08:16)
[2023-07-25] MEDS: Cholecalciferol 1,000 UNITS (25 MCG) TAB PO SCH ×2 (08:16→08:19)
[2023-07-25] MEDS: Aspirin Chewable 81 MG TAB PO SCH (08:17)
[2023-07-25] MEDS: hydrALAZINE 25 MG TAB PO SCH ×2 (08:17→21:16)
[2023-07-25] MEDS: Cyanocobalamin (Vitamin B-12) 1,000 MCG TAB PO SCH (08:17)
[2023-07-25] MEDS: Lisinopril 20 MG TAB PO SCH (08:18)
[2023-07-25] MEDS: Potassium Chloride 10 MEQ TAB PO SCH (08:18)
[2023-07-25] MEDS: Fenofibrate 48 MG TAB PO SCH (08:19)
[2023-07-25] MEDS: Fish Oil 1,000 MG CAP PO SCH (08:19)
[2023-07-25] MEDS: HumaLOG 300 UNITS/3 ML VIAL SC PRN ×4 (08:20→21:15)
[2023-07-25] MEDS: Fluticasone Propionate Nasal Spray 16 gm Bottle NASAL SCH (08:21)
[2023-07-25] MEDS: CO Q-10 CAPSULE 100 MG PO SCH (08:38)
[2023-07-25] MEDS: Furosemide 40 MG TAB PO SCH (08:39)
[2023-07-25] MEDS: Allopurinol 100 MG TAB PO SCH (08:39)
[2023-07-25] MEDS: Terazosin HCl 1 MG CAP PO SCH (21:16)
[2023-07-25] MEDS: Donepezil HCl 10 MG TAB PO SCH (21:16)
[2023-07-25] MEDS: Atorvastatin Calcium 40 MG TAB PO SCH (21:16)
[2023-07-26] MEDS: Potassium Chloride 10 MEQ TAB PO SCH (08:11)
[2023-07-26] MEDS: HumaLOG 300 UNITS/3 ML VIAL SC PRN ×3 (08:12→17:03)
[2023-07-26] MEDS: Floranex 1 GM Packet PO SCH (09:33)
[2023-07-26] MEDS: Rivaroxaban 10 MG TAB PO SCH (09:34)
[2023-07-26] MEDS: Fish Oil 1,000 MG CAP PO SCH (09:34)
[2023-07-26] MEDS: CO Q-10 CAPSULE 100 MG PO SCH (09:34)
[2023-07-26] MEDS: Fenofibrate 48 MG TAB PO SCH (09:35)
[2023-07-26] MEDS: hydrALAZINE 25 MG TAB PO SCH ×2 (09:35→21:05)
[2023-07-26] MEDS: Cyanocobalamin (Vitamin B-12) 1,000 MCG TAB PO SCH (09:35)
[2023-07-26] MEDS: Aspirin Chewable 81 MG TAB PO SCH (09:35)
[2023-07-26] MEDS: Lisinopril 20 MG TAB PO SCH (09:35)
[2023-07-26] MEDS: Furosemide 40 MG TAB PO SCH (09:36)
[2023-07-26] MEDS: Lantus 1000 UNITS/10 ML VIAL SC SCH ×2 (09:36→21:05)
[2023-07-26] MEDS: Fluticasone Propionate Nasal Spray 16 gm Bottle NASAL SCH (09:36)
[2023-07-26] MEDS: Clindamycin 150 MG CAP PO SCH ×2 (12:36→20:11)
[2023-07-26] MEDS: Terazosin HCl 1 MG CAP PO SCH (21:04)
[2023-07-26] MEDS: Donepezil HCl 10 MG TAB PO SCH (21:05)
[2023-07-26] MEDS: Atorvastatin Calcium 40 MG TAB PO SCH (21:05)
[2023-07-27] MEDS: Clindamycin 150 MG CAP PO SCH ×3 (04:16→20:31)
[2023-07-27] MEDS: Potassium Chloride 10 MEQ TAB PO SCH (08:31)
[2023-07-27] MEDS: HumaLOG 300 UNITS/3 ML VIAL SC PRN ×3 (08:32→16:57)
[2023-07-27] MEDS: Fish Oil 1,000 MG CAP PO SCH (09:25)
[2023-07-27] MEDS: Lisinopril 20 MG TAB PO SCH (09:25)
[2023-07-27] MEDS: Cholecalciferol 1,000 UNITS (25 MCG) TAB PO SCH (09:25)
[2023-07-27] MEDS: Fenofibrate 48 MG TAB PO SCH (09:26)
[2023-07-27] MEDS: Rivaroxaban 10 MG TAB PO SCH (09:26)
[2023-07-27] MEDS: hydrALAZINE 25 MG TAB PO SCH ×2 (09:26→21:01)
[2023-07-27] MEDS: Lantus 1000 UNITS/10 ML VIAL SC SCH ×2 (09:26→21:01)
[2023-07-27] MEDS: Aspirin Chewable 81 MG TAB PO SCH (09:26)
[2023-07-27] MEDS: CO Q-10 CAPSULE 100 MG PO SCH (09:26)
[2023-07-27] MEDS: Cyanocobalamin (Vitamin B-12) 1,000 MCG TAB PO SCH (09:26)
[2023-07-27] MEDS: Saccharomyces boulardii 250 MG CAP PO SCH (09:26)
[2023-07-27] MEDS: Furosemide 40 MG TAB PO SCH (09:26)
[2023-07-27] MEDS: Allopurinol 100 MG TAB PO SCH (09:27)
[2023-07-27] MEDS: Fluticasone Propionate Nasal Spray 16 gm Bottle NASAL SCH (09:27)
[2023-07-27] MEDS: Atorvastatin Calcium 40 MG TAB PO SCH (21:00)
[2023-07-27] MEDS: Terazosin HCl 1 MG CAP PO SCH (21:00)
[2023-07-27] MEDS ORDERED: Insulin Regular 300 UNITS/3 ML VIAL SC SCH (21:00)
[2023-07-27] MEDS: Donepezil HCl 10 MG TAB PO SCH (21:01)
[2023-07-28] MEDS: Clindamycin 150 MG CAP PO SCH ×3 (04:30→21:00)
[2023-07-28] MEDS: Saccharomyces boulardii 250 MG CAP PO SCH (09:02)
[2023-07-28] MEDS: Cyanocobalamin (Vitamin B-12) 1,000 MCG TAB PO SCH (09:02)
[2023-07-28] MEDS: Fenofibrate 48 MG TAB PO SCH (09:02)
[2023-07-28] MEDS: Potassium Chloride 10 MEQ TAB PO SCH (09:02)
[2023-07-28] MEDS: CO Q-10 CAPSULE 100 MG PO SCH (09:02)
[2023-07-28] MEDS: Cholecalciferol 1,000 UNITS (25 MCG) TAB PO SCH (09:03)
[2023-07-28] MEDS: Rivaroxaban 10 MG TAB PO SCH (09:03)
[2023-07-28] MEDS: Fish Oil 1,000 MG CAP PO SCH (09:03)
[2023-07-28] MEDS: hydrALAZINE 25 MG TAB PO SCH ×2 (09:03→21:00)
[2023-07-28] MEDS: Furosemide 40 MG TAB PO SCH (09:03)
[2023-07-28] MEDS: Lisinopril 20 MG TAB PO SCH (09:04)
[2023-07-28] MEDS: Aspirin Chewable 81 MG TAB PO SCH (09:04)
[2023-07-28] MEDS: HumaLOG 300 UNITS/3 ML VIAL SC PRN ×4 (09:07→21:01)
[2023-07-28] MEDS: Lantus 1000 UNITS/10 ML VIAL SC SCH ×2 (11:08→21:01)
[2023-07-28] MEDS: Fluticasone Propionate Nasal Spray 16 gm Bottle NASAL SCH (11:10)
[2023-07-28] MEDS: Donepezil HCl 10 MG TAB PO SCH (21:00)
[2023-07-28] MEDS: Atorvastatin Calcium 40 MG TAB PO SCH (21:00)
[2023-07-28] MEDS: Terazosin HCl 1 MG CAP PO SCH (21:00)
[2023-07-29] MEDS: Clindamycin 150 MG CAP PO SCH ×3 (03:59→20:29)
[2023-07-29] MEDS: CO Q-10 CAPSULE 100 MG PO SCH (08:18)
[2023-07-29] MEDS: Aspirin Chewable 81 MG TAB PO SCH (08:18)
[2023-07-29] MEDS: hydrALAZINE 25 MG TAB PO SCH ×2 (08:19→20:29)
[2023-07-29] MEDS: Furosemide 40 MG TAB PO SCH (08:20)
[2023-07-29] MEDS: Potassium Chloride 10 MEQ TAB PO SCH (08:20)
[2023-07-29] MEDS: Fenofibrate 48 MG TAB PO SCH (08:20)
[2023-07-29] MEDS: Fish Oil 1,000 MG CAP PO SCH (08:21)
[2023-07-29] MEDS: Rivaroxaban 10 MG TAB PO SCH (08:21)
[2023-07-29] MEDS: Saccharomyces boulardii 250 MG CAP PO SCH (08:21)
[2023-07-29] MEDS: Lisinopril 20 MG TAB PO SCH (08:21)
[2023-07-29] MEDS: Cholecalciferol 1,000 UNITS (25 MCG) TAB PO SCH (08:22)
[2023-07-29] MEDS: Cyanocobalamin (Vitamin B-12) 1,000 MCG TAB PO SCH (08:23)
[2023-07-29] MEDS: Fluticasone Propionate Nasal Spray 16 gm Bottle NASAL SCH (08:24)
[2023-07-29] MEDS: Allopurinol 100 MG TAB PO SCH (08:27)
[2023-07-29] MEDS: Lantus 1000 UNITS/10 ML VIAL SC SCH ×2 (08:29→20:30)
[2023-07-29] MEDS: HumaLOG 300 UNITS/3 ML VIAL SC PRN ×3 (12:11→20:36)
[2023-07-29] MEDS: Terazosin HCl 1 MG CAP PO SCH (20:29)
[2023-07-29] MEDS: Donepezil HCl 10 MG TAB PO SCH (20:29)
[2023-07-29] MEDS: Atorvastatin Calcium 40 MG TAB PO SCH (20:29)
[2023-07-29] MEDS: Guaifenesin DM 100-10/5 ML UDCUP PO PRN (20:35)
[2023-07-30] MEDS: Clindamycin 150 MG CAP PO SCH ×3 (03:51→21:27)
[2023-07-30] MEDS: Guaifenesin DM 100-10/5 ML UDCUP PO PRN (03:52)
[2023-07-30] MEDS: Potassium Chloride 10 MEQ TAB PO SCH (09:02)
[2023-07-30] MEDS: Lisinopril 20 MG TAB PO SCH (09:24)
[2023-07-30] MEDS: hydrALAZINE 25 MG TAB PO SCH ×2 (09:24→21:23)
[2023-07-30] MEDS: Cholecalciferol 1,000 UNITS (25 MCG) TAB PO SCH (09:24)
[2023-07-30] MEDS: Furosemide 40 MG TAB PO SCH (09:24)
[2023-07-30] MEDS: Cyanocobalamin (Vitamin B-12) 1,000 MCG TAB PO SCH (09:24)
[2023-07-30] MEDS: Aspirin Chewable 81 MG TAB PO SCH (09:25)
[2023-07-30] MEDS: Saccharomyces boulardii 250 MG CAP PO SCH (09:25)
[2023-07-30] MEDS: Lantus 1000 UNITS/10 ML VIAL SC SCH ×2 (09:25→21:31)
[2023-07-30] MEDS: Fish Oil 1,000 MG CAP PO SCH (09:25)
[2023-07-30] MEDS: Rivaroxaban 10 MG TAB PO SCH (09:25)
[2023-07-30] MEDS: Fenofibrate 48 MG TAB PO SCH (09:25)
[2023-07-30] MEDS: CO Q-10 CAPSULE 100 MG PO SCH (09:25)
[2023-07-30] MEDS: Fluticasone Propionate Nasal Spray 16 gm Bottle NASAL SCH (09:26)
[2023-07-30] MEDS: HumaLOG 300 UNITS/3 ML VIAL SC PRN ×3 (12:21→21:32)
[2023-07-30] MEDS: Terazosin HCl 1 MG CAP PO SCH (21:23)
[2023-07-30] MEDS: Atorvastatin Calcium 40 MG TAB PO SCH (21:23)
[2023-07-30] MEDS: Donepezil HCl 10 MG TAB PO SCH (21:24)
[2023-07-31] MEDS: hydrOXYzine 25 MG TAB PO PRN ×2 (00:15→20:25)
[2023-07-31] MEDS: Clindamycin 150 MG CAP PO SCH ×3 (06:01→20:26)
[2023-07-31] MEDS: Rivaroxaban 10 MG TAB PO SCH (08:57)
[2023-07-31] MEDS: Fenofibrate 48 MG TAB PO SCH (08:57)
[2023-07-31] MEDS: CO Q-10 CAPSULE 100 MG PO SCH (08:57)
[2023-07-31] MEDS: Cholecalciferol 1,000 UNITS (25 MCG) TAB PO SCH (08:57)
[2023-07-31] MEDS: Saccharomyces boulardii 250 MG CAP PO SCH (08:57)
[2023-07-31] MEDS: Potassium Chloride 10 MEQ TAB PO SCH (08:57)
[2023-07-31] MEDS: Fish Oil 1,000 MG CAP PO SCH (08:57)
[2023-07-31] MEDS: Aspirin Chewable 81 MG TAB PO SCH (08:58)
[2023-07-31] MEDS: hydrALAZINE 25 MG TAB PO SCH ×2 (08:58→20:11)
[2023-07-31] MEDS: Allopurinol 100 MG TAB PO SCH (08:58)
[2023-07-31] MEDS: Cyanocobalamin (Vitamin B-12) 1,000 MCG TAB PO SCH (08:58)
[2023-07-31] MEDS: Furosemide 40 MG TAB PO SCH (09:03)
[2023-07-31] MEDS: Lisinopril 20 MG TAB PO SCH (09:03)
[2023-07-31] MEDS: Lantus 1000 UNITS/10 ML VIAL SC SCH ×2 (09:03→20:24)
[2023-07-31] MEDS: Fluticasone Propionate Nasal Spray 16 gm Bottle NASAL SCH (09:04)
[2023-07-31] MEDS: HumaLOG 300 UNITS/3 ML VIAL SC PRN ×3 (12:40→20:25)
[2023-07-31] MEDS: Atorvastatin Calcium 40 MG TAB PO SCH (20:12)
[2023-07-31] MEDS: Terazosin HCl 1 MG CAP PO SCH (20:12)
[2023-07-31] MEDS: Donepezil HCl 10 MG TAB PO SCH (20:12)
[2023-08-01] MEDS: Acetaminophen 325 MG TAB PO PRN ×2 (04:25→20:40)
[2023-08-01] MEDS: hydrOXYzine 25 MG TAB PO PRN (04:25)
[2023-08-01] MEDS: Clindamycin 150 MG CAP PO SCH ×3 (04:25→20:37)
[2023-08-01 07:15] LABS: Anion Gap 15 mmol/L (10-20); BUN (Urea Nitrogen) 92 mg/dL (8.4-25.7); Calc. Creatinine Clearance 35 mL/min (70-130); Calcium 9.4 mg/dL (7.8-10.44); Carbon Dioxide 23 mmol/L (23-31); Chloride 111 mmol/L (98-107); Estimated GFR 24; Glucose 219 mg/dL (83-110); Potassium 5.5 mmol/L (3.5-5.1); Sodium 143 mmol/L (136-145)
[2023-08-01 07:23] LABS: #Basophils 0.1 thou/uL (0.0-0.2); #Eosinphils 0.3 thou/uL (0.0-0.7); #Lymphocytes 1.6 thou/uL (1.20-3.40); #Monocytes 0.6 thou/uL (0.11-0.59); #Neutrophils 4.2 thou/uL (1.40-6.50); %Basophils 1.7 % (0.0-1.0); %Eosinophils 4.6 % (0.0-10.0); %Lymphocytes 23.1 % (21.0-51.0); %Monocytes 8.2 % (0.0-10.0); %Neutrophils 62.4 % (42.0-75.0); Hematocrit 35.6 % (42.0-52.0); Hemoglobin 11.2 g/dL (14.0-18.0); Mean Corpuscular HGB CONC 31.6 g/dL (32.0-36.0); Mean Corpuscular Volume 88.8 fl (78.0-98.0); Mean Platelet Volume 10.7 fL (7.4-10.4); Platelet Count 182 10x3/uL (130-400); Red Blood Cell (RBC) Count 4.01 mill/uL (4.70-6.10); White Blood Cell (WBC) Count 6.8 10x3/uL (4.8-10.8)
[2023-08-01] MEDS: Fenofibrate 48 MG TAB PO SCH (09:09)
[2023-08-01] MEDS: Cholecalciferol 1,000 UNITS (25 MCG) TAB PO SCH (09:09)
[2023-08-01] MEDS: Potassium Chloride 10 MEQ TAB PO SCH (09:09)
[2023-08-01] MEDS: Cyanocobalamin (Vitamin B-12) 1,000 MCG TAB PO SCH (09:10)
[2023-08-01] MEDS: Furosemide 40 MG TAB PO SCH (09:10)
[2023-08-01] MEDS: Amlodipine 5 MG TAB PO SCH (09:10)
[2023-08-01] MEDS: Lisinopril 10 MG TAB PO SCH (09:11)
[2023-08-01] MEDS: Aspirin Chewable 81 MG TAB PO SCH (09:11)
[2023-08-01] MEDS: CO Q-10 CAPSULE 100 MG PO SCH (09:12)
[2023-08-01] MEDS: hydrALAZINE 25 MG TAB PO SCH ×2 (09:12→20:37)
[2023-08-01] MEDS: Saccharomyces boulardii 250 MG CAP PO SCH (09:13)
[2023-08-01] MEDS: Rivaroxaban 10 MG TAB PO SCH (09:13)
[2023-08-01] MEDS: Fluticasone Propionate Nasal Spray 16 gm Bottle NASAL SCH (09:15)
[2023-08-01] MEDS: Fish Oil 1,000 MG CAP PO SCH (09:18)
[2023-08-01] MEDS: Lantus 1000 UNITS/10 ML VIAL SC SCH ×2 (09:19→21:50)
[2023-08-01] MEDS: HumaLOG 300 UNITS/3 ML VIAL SC PRN ×2 (12:05→16:40)
[2023-08-01 15:24] LABS: Hemoglobin A1c 8.5 % (4.0-6.0)
[2023-08-01] MEDS: Atorvastatin Calcium 40 MG TAB PO SCH (20:37)
[2023-08-01] MEDS: Terazosin HCl 1 MG CAP PO SCH (20:37)
[2023-08-01] MEDS: Donepezil HCl 10 MG TAB PO SCH (20:37)
[2023-08-02] MEDS: HumaLOG 300 UNITS/3 ML VIAL SC PRN ×4 (01:35→20:44)
[2023-08-02 06:30] LABS: Hematocrit 35.5 % (42.0-52.0); Hemoglobin 11.1 g/dL (14.0-18.0); Platelet Count 183 10x3/uL (130-400)
[2023-08-02 06:39] LABS: ALT (SGPT) 14 U/L (8-55); AST (SGOT) 11 U/L (5-34); Albumin 3.1 g/dL (3.4-4.8); Alkaline Phosphatase 62 U/L (40-110); Anion Gap 14 mmol/L (10-20); BUN (Urea Nitrogen) 92 mg/dL (8.4-25.7); Bilirubin, Total 0.4 mg/dL (0.2-1.2); Calc. Creatinine Clearance 35 mL/min (70-130); Calcium 8.8 mg/dL (7.8-10.44); Carbon Dioxide 20 mmol/L (23-31); Chloride 113 mmol/L (98-107); Estimated GFR 24; Globulin 2.9 g/dL (2.4-3.5); Glucose 206 mg/dL (83-110); Potassium 4.9 mmol/L (3.5-5.1); Sodium 142 mmol/L (136-145)
[2023-08-02] MEDS: Clindamycin 150 MG CAP PO SCH ×3 (06:58→20:43)
[2023-08-02] MEDS: Fish Oil 1,000 MG CAP PO SCH (08:39)
[2023-08-02] MEDS: CO Q-10 CAPSULE 100 MG PO SCH (08:39)
[2023-08-02] MEDS: hydrALAZINE 25 MG TAB PO SCH ×2 (08:40→20:43)
[2023-08-02] MEDS: Lisinopril 10 MG TAB PO SCH (08:40)
[2023-08-02] MEDS: Rivaroxaban 10 MG TAB PO SCH (08:40)
[2023-08-02] MEDS: Aspirin Chewable 81 MG TAB PO SCH (08:40)
[2023-08-02] MEDS: Cholecalciferol 1,000 UNITS (25 MCG) TAB PO SCH (08:41)
[2023-08-02] MEDS: Fenofibrate 48 MG TAB PO SCH (08:41)
[2023-08-02] MEDS: Potassium Chloride 10 MEQ TAB PO SCH (08:41)
[2023-08-02] MEDS: Cyanocobalamin (Vitamin B-12) 1,000 MCG TAB PO SCH (08:41)
[2023-08-02] MEDS: Saccharomyces boulardii 250 MG CAP PO SCH (08:41)
[2023-08-02] MEDS: Amlodipine 5 MG TAB PO SCH (08:42)
[2023-08-02] MEDS: Furosemide 40 MG TAB PO SCH (08:42)
[2023-08-02] MEDS: Fluticasone Propionate Nasal Spray 16 gm Bottle NASAL SCH (08:43)
[2023-08-02] MEDS: Allopurinol 100 MG TAB PO SCH (08:47)
[2023-08-02] MEDS: Lantus 1000 UNITS/10 ML VIAL SC SCH ×2 (08:49→20:44)
[2023-08-02] MEDS: Terazosin HCl 1 MG CAP PO SCH (20:43)
[2023-08-02] MEDS: Atorvastatin Calcium 40 MG TAB PO SCH (20:43)
[2023-08-02] MEDS: Donepezil HCl 10 MG TAB PO SCH (20:44)
[2023-08-03 07:29] VITALS: TEMP 97.5
[2023-08-03] MEDS: Lantus 1000 UNITS/10 ML VIAL SC SCH (08:49)
[2023-08-03] MEDS: Cholecalciferol 1,000 UNITS (25 MCG) TAB PO SCH (08:55)
[2023-08-03] MEDS: CO Q-10 CAPSULE 100 MG PO SCH (08:56)
[2023-08-03] MEDS: Fish Oil 1,000 MG CAP PO SCH (08:56)
[2023-08-03] MEDS: Rivaroxaban 10 MG TAB PO SCH (08:56)
[2023-08-03] MEDS: Cyanocobalamin (Vitamin B-12) 1,000 MCG TAB PO SCH (08:57)
[2023-08-03] MEDS: hydrALAZINE 25 MG TAB PO SCH (08:57)
[2023-08-03] MEDS: Potassium Chloride 10 MEQ TAB PO SCH (08:57)
[2023-08-03] MEDS: Aspirin Chewable 81 MG TAB PO SCH (08:57)
[2023-08-03] MEDS: Lisinopril 10 MG TAB PO SCH (08:58)
[2023-08-03] MEDS: Amlodipine 5 MG TAB PO SCH (09:00)
[2023-08-03] MEDS: Fenofibrate 48 MG TAB PO SCH (09:00)
[2023-08-03] MEDS: Saccharomyces boulardii 250 MG CAP PO SCH (09:00)
[2023-08-03] MEDS: Furosemide 40 MG TAB PO SCH (09:00)
[2023-08-03] MEDS: Fluticasone Propionate Nasal Spray 16 gm Bottle NASAL SCH (09:03)
[2023-08-03 09:04] VITALS: BP 130/60
[2023-08-03] MEDS ORDERED: Acetaminophen 325 MG TAB PO PRN (09:38)
[2023-08-03] MEDS ORDERED: Acetaminophen 650 MG Suppository PR PRN (09:39)
== END 2023-08-03 10:00 | disposition home or self-care (01) | DRG 947 ==
LOC: BURMED 16:38
PROVIDERS: ADMIT Family Medicine; ATTEND Family Medicine
DX: R53.1 Weakness (principal); I21.4 Non-ST elevation (NSTEMI) myocardial infarction; I63.9 Cerebral infarction, unspecified; J96.01 Acute respiratory failure with hypoxia; I13.0 Hypertensive heart and chronic kidney disease with heart failure and stage 1 through stage 4 chronic kidney disease, or unspecified chronic kidney disease; I50.32 Chronic diastolic (congestive) heart failure; N18.4 Chronic kidney disease, stage 4 (severe); E87.20 Acidosis, unspecified; E78.5 Hyperlipidemia, unspecified; I48.0 Paroxysmal atrial fibrillation; E11.22 Type 2 diabetes mellitus with diabetic chronic kidney disease; E66.01 Morbid (severe) obesity due to excess calories; G47.33 Obstructive sleep apnea (adult) (pediatric); I25.10 Atherosclerotic heart disease of native coronary artery without angina pectoris; N40.0 Benign prostatic hyperplasia without lower urinary tract symptoms; F03.90 Unspecified dementia, unspecified severity, without behavioral disturbance, psychotic disturbance, mood disturbance, and anxiety; E11.649 Type 2 diabetes mellitus with hypoglycemia without coma; L30.9 Dermatitis, unspecified; L89.322 Pressure ulcer of left buttock, stage 2; L89.312 Pressure ulcer of right buttock, stage 2; E86.0 Dehydration; D63.1 Anemia in chronic kidney disease; H91.90 Unspecified hearing loss, unspecified ear; Z86.16 Personal history of COVID-19; Z86.73 Personal history of transient ischemic attack (TIA), and cerebral infarction without residual deficits; Z86.718 Personal history of other venous thrombosis and embolism; Z88.5 Allergy status to narcotic agent; Z88.2 Allergy status to sulfonamides; Z79.82 Long term (current) use of aspirin; Z79.899 Other long term (current) drug therapy; Z79.4 Long term (current) use of insulin; Z95.5 Presence of coronary angioplasty implant and graft; I25.2 Old myocardial infarction; Z90.49 Acquired absence of other specified parts of digestive tract; Z68.35 Body mass index [BMI] 35.0-35.9, adult; Z79.01 Long term (current) use of anticoagulants
CPT/HCPCS: 36415; 36416; 80048; 80053; 81001; 82565; 83036; 85014; 85018; 85025; 85049; 97602; 99285; G0378; J1815

== ENCOUNTER 2023-11-01 16:03 | Emergency (ER) | payer MEDICARE, OTHER | END 2023-11-01 16:40 | disposition home or self-care (01) | LOC: BURERS 16:03 | DX: S09.91XA Unspecified injury of ear, initial encounter (principal); H60.332 Swimmer's ear, left ear; E11.9 Type 2 diabetes mellitus without complications; I10 Essential (primary) hypertension; X58.XXXA Exposure to other specified factors, initial encounter; Z79.4 Long term (current) use of insulin; Z87.891 Personal history of nicotine dependence | CPT/HCPCS: 99282 ==

== ENCOUNTER 2024-04-24 03:36 | Emergency (ER) | payer MEDICARE, OTHER ==
[2024-04-24 04:27] LABS: ALT (SGPT) 14 U/L (8-55); AST (SGOT) 13 U/L (5-34); Albumin 3.5 g/dL (3.4-4.8); Alkaline Phosphatase 62 U/L (40-110); Anion Gap 15 mmol/L (10-20); BUN (Urea Nitrogen) 75 mg/dL (8.4-25.7); Bilirubin, Total 0.4 mg/dL (0.2-1.2); Calc. Creatinine Clearance 0 mL/min (70-130); Calcium 9.2 mg/dL (7.8-10.44); Carbon Dioxide 20 mmol/L (23-31); Chloride 111 mmol/L (98-107); Estimated GFR 21; Globulin 2.9 g/dL (2.4-3.5); Glucose 189 mg/dL (83-110); Potassium 4.2 mmol/L (3.5-5.1); Protein, Total 6.4 g/dL (5.8-8.1); Sodium 142 mmol/L (136-145)
[2024-04-24 05:15] LABS: Bilirubin Negative (Negative); Blood, Urine Trace (Negative); Clarity Clear (Clear); Glucose, Urine (Dipstick) 250 mg/dL (Negative); Ketone, Urine Negative (Negative); Leukocyte Negative (Negative); Nitrite Negative (Negative); Protein, Urine (Dipstick) > or equal to 300 mg/dL (Neg-Trace); Urobilinogen 0.2 mg/dL (Less than 2); pH, Urine 6.5 (5.0-9.0)
[2024-04-24 05:22] LABS: Bacteria/HPF None Seen HPF (None Seen); CAUTI Indications for Culture Pelvic or flank pain; RBC/HPF 0-3 HPF (0-3); Squamous Epithelial 0-3 HPF (0-3); WBC/HPF None Seen HPF (0-3)
[2024-04-24 05:23] LABS: Urine Culture Reflex No No
[2024-04-24 05:40] LABS: Hematocrit 34.7 % (42.0-52.0); Hemoglobin 11.2 g/dL (14.0-18.0); Mean Corpuscular HGB CONC 32.3 g/dL (32.0-36.0); Mean Corpuscular Hemoglobin 29.2 pg (27.0-31.0); Mean Corpuscular Volume 90.3 fl (78.0-98.0); Mean Platelet Volume 9.9 fL (7.4-10.4); Platelet Count 248 10x3/uL (130-400); RBC Distribution Width 15.2 % (11.5-14.5); Red Blood Cell (RBC) Count 3.84 mill/uL (4.70-6.10); White Blood Cell (WBC) Count 9.2 10x3/uL (4.8-10.8)
[2024-04-24 05:41] LABS: #Basophils 0.1 thou/uL (0.0-0.2); #Eosinphils 0.6 thou/uL (0.0-0.7); #Lymphocytes 1.9 thou/uL (1.20-3.40); #Monocytes 0.7 thou/uL (0.11-0.59); #Neutrophils 5.9 thou/uL (1.40-6.50); %Basophils 1.3 % (0.0-1.0); %Eosinophils 6.8 % (0.0-10.0); %Lymphocytes 20.1 % (21.0-51.0); %Monocytes 7.2 % (0.0-10.0); %Neutrophils 64.6 % (42.0-75.0)
== END 2024-04-24 05:33 | disposition home or self-care (01) ==
LOC: BURERS 03:36
DX: S00.83XA Contusion of other part of head, initial encounter (principal); I12.9 Hypertensive chronic kidney disease with stage 1 through stage 4 chronic kidney disease, or unspecified chronic kidney disease; N18.9 Chronic kidney disease, unspecified; E11.22 Type 2 diabetes mellitus with diabetic chronic kidney disease; Z87.891 Personal history of nicotine dependence; Z79.4 Long term (current) use of insulin; Z79.899 Other long term (current) drug therapy; W01.198A Fall on same level from slipping, tripping and stumbling with subsequent striking against other object, initial encounter
CPT/HCPCS: 36415; 70450; 72125; 80053; 81001; 85025